=== PATIENT | male | born 1935 | race Caucasian/White ===

== ENCOUNTER → 2016-10-07 | Outpatient (CLI) | payer MEDICARE, OTHER ==
--- NOTE | 2016-10-07 11:45 | RAD ---
Left knee, 3 views, 10/07/2016: History: Knee pain no known injury There is moderate bony demineralization. No fracture or dislocation is identified. No significant arthritic change is seen. The periarticular soft tissues are unremarkable. IMPRESSION: 1. Demineralization. 2. No acute bony abnormality is detected.
== END | disposition home or self-care (01) ==
LOC: DXRAD 10:31
PROVIDERS: ATTEND Family Medicine
DX: M81.8 Other osteoporosis without current pathological fracture (principal)
CPT/HCPCS: 73562